=== PATIENT | female | born 1975 | race Two or more races ===

== ENCOUNTER 2017-05-04 22:28 | Emergency (ER) | payer SELFPAY ==
[~2017-05-04] VITALS: Ht 160 cm; Wt 73.0 kg
[2017-05-04 22:43] VITALS: BP 131/77
== END 2017-05-04 23:19 | disposition home or self-care (01) ==
LOC: ER 22:39
DX: J02.9 Acute pharyngitis, unspecified (principal); H61.21 Impacted cerumen, right ear